=== PATIENT | female | born 1965 | race Asian ===

== ENCOUNTER 2017-12-23 16:46 | Emergency (ER) | payer BC ==
[~2017-12-23] VITALS: Ht 160 cm; Wt 62.4 kg
[2017-12-23 16:56] VITALS: Ht 160 cm; Wt 62.4 kg
[2017-12-23 18:15] LABS: UA SPECIFIC GRAVITY 1.025 (1.005-1.035); microscopic required? YES; urine erythrocyte NEGATIVE (NEGATIVE)
[2017-12-23 18:17] LABS: BASOPHIL % 0.8 % (0-2); PLATELET COUNT 263 x10^3mcL (130-400); RED CELL DISTRIBUTION WIDTH 12.7 % (11.5-14.5)
[2017-12-23 18:27] LABS: CALCIUM 9.1 mg/dL (8.5-10.1); CARBON DIOXIDE 28.1 mmol/L (21-32); CHLORIDE SERUM 108 mmol/L (98-107); CREATININE SERUM 0.7 mg/dL (0.6-1.0); GFR1 > 60 mL/min; GLUCOSE SERUM 108 mg/dL (74-106); POTASSIUM SERUM 4.3 mmol/L (3.5-5.1); SODIUM SERUM 142 mmol/L (136-145)
[2017-12-23 18:32] LABS: ALBUMIN 3.8 g/dL (3.4-5.0); ALKALINE PHOSPHATASE 128 U/L (46-116); ALT/SGPT 35 U/L (14-59); AST/SGOT 28 U/L (15-37); BILIRUBIN TOTAL 0.39 mg/dL (0.20-1.00); LIPASE 158 IU/L (73-393); TOTAL PROTEIN, SERUM 7.9 g/dL (6.4-8.2)
[2017-12-23 19:14] VITALS: BP 116/68
== END 2017-12-23 19:14 | disposition home or self-care (01) ==
LOC: ED 16:46
PROVIDERS: Emergency Medicine
DX: R10.9 Unspecified abdominal pain (principal)
CPT/HCPCS: 36415; Q0092

== ENCOUNTER 2018-02-14 23:10 | Emergency (ER) | payer BC ==
[~2018-02-14] VITALS: Ht 157.5 cm; Wt 64.0 kg
[2018-02-14 23:14] VITALS: BP 123/69; Ht 157.5 cm; Wt 64.0 kg
== END 2018-02-15 01:19 | disposition home or self-care (01) ==
LOC: ED 23:10
DX: B34.9 Viral infection, unspecified (principal)
CPT/HCPCS: J1100; J1885

== ENCOUNTER 2019-07-02 08:23 | Emergency (ER) | payer OTHER ==
[~2019-07-02] VITALS: Ht 170.2 cm; Wt 58.1 kg
[2019-07-02 08:29] VITALS: Ht 170.2 cm; Wt 58.1 kg
[2019-07-02 10:06] LABS: ALBUMIN 3.9 g/dL (3.4-5.0); ALKALINE PHOSPHATASE 96 U/L (46-116); ALT/SGPT 38 U/L (14-59); AST/SGOT 25 U/L (15-37); BASOPHIL % 0.7 % (0-2); BILIRUBIN TOTAL 0.8 mg/dL (0.20-1.00); CARBON DIOXIDE 30.2 mmol/L (21-32); CHLORIDE SERUM 107 mmol/L (98-107); CREATININE SERUM 0.7 mg/dL (0.6-1.0); GFR1 > 60 mL/min; GLUCOSE SERUM 94 mg/dL (74-106); LIPASE 109 IU/L (73-393); PLATELET COUNT 227 x10^3mcL (130-400); POTASSIUM SERUM 3.9 mmol/L (3.5-5.1); RED CELL DISTRIBUTION WIDTH 12.5 % (11.5-14.5); SODIUM SERUM 144 mmol/L (136-145); TOTAL PROTEIN, SERUM 7.5 g/dL (6.4-8.2)
[2019-07-02 10:15] LABS: CALCIUM 9.3 mg/dL (8.5-10.1)
[2019-07-02 12:34] VITALS: BP 133/76
== END 2019-07-02 12:34 | disposition home or self-care (01) ==
LOC: ED 08:23
PROVIDERS: Emergency Medicine
DX: R10.13 Epigastric pain (principal)
CPT/HCPCS: 36415; Q0092

== ENCOUNTER 2019-09-10 21:44 | Emergency (ER) | payer OTHER ==
[~2019-09-10] VITALS: Ht 160 cm; Wt 59.4 kg
[2019-09-10 21:51] VITALS: Ht 160 cm; Wt 59.4 kg
[2019-09-10 23:30] VITALS: BP 133/49
== END 2019-09-10 23:30 | disposition home or self-care (01) ==
LOC: ED 21:44
DX: T18.128A Food in esophagus causing other injury, initial encounter (principal); W45.8XXA Other foreign body or object entering through skin, initial encounter; Y93.89 Activity, other specified; Y92.89 Other specified places as the place of occurrence of the external cause; Y99.8 Other external cause status